=== PATIENT | female | born 1960 ===

== ENCOUNTER 2018-10-18 08:30 | Emergency (ER) | payer BC ==
--- NOTE | 2018-10-18 09:25 | UC ---
Respiratory Complaint HPI - HPI Summary HPI Summary: PT REPORTS OVER 3 WEEKS OF COUGH, NASAL CONGESTION, CHEST CONGESTION AND SHORTNESS OF BREATH. WAS PUT ON A COURSE OF DOXY WHICH SHE STATES DID NOT HELP. THEN WENT ON A 10 DAY COURSE OF CLARITHROMYCIN. TODAY IS THE LAST DAY. FEELS NOT MUCH BETTER. HAD 4 DAYS OF PREDNISONE WHICH HELPED BUT SYMPTOMS RETURNED SOON SHE STOPPED IT (OVER A WEEK AGO). NO FEVER. NO N/V. QUIT SMOKING SEVERAL YEARS AGO. - History of Current Complaint Chief Complaint: UCRespiratory Stated Complaint: CHEST CONGESTION COUGH Time Seen by Provider: 10/18/18 09:06 Hx Obtained From: Patient Onset/Duration: Gradual Onset, Lasting Weeks, Still Present Timing: Constant Severity Initially: Moderate Severity Currently: Moderate Pain Intensity: 0 Pain Scale Used: 0-10 Numeric Character: Cough: Nonproductive Aggravating Factors: Nothing Alleviating Factors: Nothing Associated Signs And Symptoms: Positive: Dyspnea, URI, Nasal Congestion. Negative: Fever, Wheezing - Allergies/Home Medications Allergies/Adverse Reactions: Allergies Allergy/AdvReac Type Severity Reaction Status Date / Time Penicillins Allergy Rash Verified 10/18/18 08:37 Home Medications: Home Medications Clarithromycin TAB* [Biaxin 500 MG TAB*] 500 mg PO BID 10/18/18 [History Confirmed 10/18/18] amLODIPine/Benazepril 09/09(NF [Lotrel 09/09(NF)] 1 tab PO DAILY 10/18/18 [ History Confirmed 10/18/18] guaiFENesin LIQ* [Robitussin*] 10 ml PO PRN 10/18/18 [History] PMH/Surg Hx/FS Hx/Imm Hx Cardiovascular History: Hypertension - Surgical History Surgical History: None - Family History Known Family History: Positive: Non-Contributory - Social History Alcohol Use: Occasionally Substance Use Type: None Smoking Status (MU): Former Smoker Review of Systems All Other Systems Reviewed And Are Negative: Yes Constitutional: Positive: Fatigue ENT: Positive: Nasal Discharge Respiratory: Positive: Shortness Of Breath, Cough Cardiovascular: Positive: Negative Gastrointestinal: Positive: Negative Physical Exam Triage Information Reviewed: Yes Appearance: Well-Appearing, No Pain Distress, Well-Nourished Vital Signs: Initial Vital Signs Temp 98.7 F 10/18/18 08:42 Pulse 76 10/18/18 08:42 Resp 18 10/18/18 08:42 BP 115/69 10/18/18 08:42 Pulse Ox 97 10/18/18 08:42 Vital Signs Reviewed: Yes Eyes: Positive: Conjunctiva Clear ENT: Positive: Hearing grossly normal, Pharynx normal, Nasal congestion, TMs normal Neck: Positive: Supple, Nontender, No Lymphadenopathy Respiratory Exam: Normal Cardiovascular Exam: Normal Abdomen Description: Positive: Soft Musculoskeletal: Positive: No Edema Neurological: Positive: Alert Psychological: Positive: Age Appropriate Behavior Skin: Negative: Rashes UC Diagnostic Evaluation - Laboratory O2 Sat by Pulse Oximetry: 97 - Radiology Radiology Interpretation Completed By: Radiologist Summary of Radiographic Findings: CXR SHOWS COPD BUT NOTHING ACUTE Re-Evaluation - Re-Evaluation First Eval Re-Evaluation Time: 10:15 - FEELS IMPROVED AFTER PREDNISONE AND NEB TX Change: Improved Respiratory Course/Dx - Differential Dx/Diagnosis Provider Diagnosis: COPD exacerbation Discharge - Sign-Out/Discharge Documenting (check all that apply): Patient Departure All imaging exams completed and their final reports reviewed: Yes - Discharge Plan Condition: Stable Disposition: HOME Prescriptions: Albuterol HFA INHALER* [Ventolin HFA Inhaler*] 2 puff INH Q4H PRN #1 mdi PRN Reason: Shortness Of Breath predniSONE TAB* [Deltasone TAB*] 50 mg PO DAILY #5 tab Patient Education Materials: COPD (Chronic Obstructive Pulmonary Disease) (ED) Forms: *Work Release Referrals: Donna Maxwell MD [Primary Care Provider] - If Needed Angy Mccarthy MD [Medical Doctor] - 2 Weeks Additional Instructions: CHEST XRAY TODAY SHOWED COPD BUT NO ACUTE DISEASE. FINISH YOUR ANTIBIOTICS TODAY PRESCRIBED. PREDNISONE FOR THE NEXT 5 DAYS. USE THE INHALER NEEDED. I RECOMMEND YOU USE IT SCHEDULED TWICE DAILY AND THEN EVERY 4 HRS NEEDED UNTIL YOU ARE BACK AT [place]. USE THE INCENTIVE SPIROMETER MUCH YOU CAN. CALL PULMONOLOGY FOR A FOLLOW-UP APPT. GO TO ED WITHOUT FAIL IF YOU DEVELOP WORSENING SHORTNESS OF BREATH, FEVER, CHEST PAIN, NAUSEA, SWEATS, DIZZINESS OR ANY OTHER CONCERNING SYMPTOMS. - Billing Disposition and Condition Condition: STABLE Disposition: Home
[2018-10-18] MEDS ORDERED: predniSONE TAB* 20 MG PO ONE (09:45)
[2018-10-18] MEDS ORDERED: Albuterol 2.5 MG/3 ML NEB.SOL* (0.083%) INH ONE (09:45)
[2018-10-18] MEDS ORDERED: Ipratropium 0.5MG/2.5ML NEB* 0.5 MG/2.5 ML NEB.SOLN INH ONE (09:45)
[2018-10-18 10:33] VITALS: BP 138/75
== END 2018-10-18 10:41 | disposition home or self-care (01) ==
LOC: UCEAST 08:30
DX: J44.1 Chronic obstructive pulmonary disease with (acute) exacerbation (principal); I10 Essential (primary) hypertension; Z88.0 Allergy status to penicillin; Z87.891 Personal history of nicotine dependence
CPT/HCPCS: 71046; 99212; G0463; J7512